=== PATIENT | male | born 1975 | race Two or more races ===

== ENCOUNTER 2024-10-03 11:08 | Emergency (ER) | payer BC, OTHER ==
[~2024-10-03] VITALS: Ht 165.1 cm; Wt 82.7 kg
--- NOTE | 2024-10-03 11:56 | ED.PDOC ---
General HPI Comments PMHx:Denies Any SHx:Gallstone Sx HPI: Poor Historian. 49-year-old male complains of chronic left testicular pain but got worse lately. He went to see a doctor prescribed him Cipro he is on day three of Cipro. Patient states that the pain is getting somewhat worse. He points his left testicle where his pain is. Denies any fall or trauma. Denies any history of sexually transmitted disease however he states having some urinary symptoms with some mild hematuria and penile discharge. REVIEW OF SYSTEMS: CONSTITUTIONAL: Denies acute: fever, diaphoresis, chills, generalized weakness. HEAD: Denies acute: headache, photophobia Eyes: Denies acute: Double vision, vision loss, eye pain, eye discharge. EARS: Denies acute: tinnitus, hearing loss, ear discharge, ear pain, THROAT: Denies acute: sore throat, swelling, difficulty swallowing , pain with swallowing, change in voice. NECK: Denies acute: neck pain, neck swelling, stiff neck. HEART: Denies acute : chest pain, palpitations, LUNGS: Denies acute: SOB, wheezing, cough, hemoptysis ABDOMEN: Denies acute: abdominal pain, Nausea, Vomiting, diarrhea, melena , hematemesis, hematochezia SKIN: Denies acute: rash, redness, lesions, itchiness. EXTREMITIES: Denies acute: calf pain, numbness, tingling, weakness, denies pain in extremity. Denies acute: Low back pain. Neuro: Denies acute: focal neurological deficit, motor or sensory focal neurological deficit, tremors, seizure like activity, confusion, dizziness, change in mental status, loss of bowel or bladder function, cauda equina like symptoms. : Denies acute: flank pain, increase in urinary frequency. PSYCH: Denies acute: hallucination, suicidal ideation, homicidal ideation. PHYSICAL EXAM: General: ----mild----acute distress, awake and alert. Head: normocephalic, atraumatic. Neck: supple, trachea is midline, no swelling. Throat: Normal phonation. Eyes:, no erythema, no purulent discharge, no proptosis, no icterus. Heart: regular rate, regular rhythm, no significant murmur appreciated. Lungs: no apparent respiratory distress, Able to speak in full sentences. No wheezing, no rhonchi, no crackles. No stridors Clear to auscultation bilaterally. Abdomen: non tender to palpation, non distended, soft, no guarding, no rebound, + bowel sounds. Neuro: Awake, Alert, oriented to name, self, situation, follows commands GCS=15. Speech is normal. : Normal-appearing external male genitalia uncircumcised. Evaluation of the testicle does not reveal any erythema or swelling or palpable masses or suspicion for hernia. No crepitus. The left testicle is tender to palpation. Skin: no petechia, no purpura, no cyanosis, non-pale, not jaundice. Lower extremities: --trace bilateral - Pitting edema no deformity, no focal swelling, no calf TTP. Makes eye contact. moves all four extremities. Face: no apparent facial droop. Ambulating in the ED independently. No nuchal rigidity, Kernig's sign, Brudzinski's sign, no meningeal signs. ED COURSE: Chief Complaint: Urinary Time Seen by MD: 11:50 Reviewed notes: Nurses Notes, Allergies Allergies: Coded Allergies: NO KNOWN ALLERGIES (Unverified , 10/03/24) Home Meds Active Scripts Doxycycline Hyclate (DOXYCYCLINE HYCLATE) 100 Mg Tab, 1 TAB PO BID for 7 Days, #14 TAB Prov:DAHLIA RODRIGUEZ DO 10/03/24 Information Source: Patient Mode of Arrival: Ambulatory Past Medical History PAST MEDICAL HISTORY: Denies Surgical History (Other): Gallstone Sx Family History Family History: Reviewed,noncontributory to illness, Unknown Social History Smoker: Non-Smoker Alcohol: Denies ETOH Use Drugs: Denies Drug Use Lives In: Home Was a procedure done? Was a procedure done?: No Differential Diagnosis Kidney stone (Female): N/A Kidney stone (Male): N/A Penile/Scrotal: Epidiymitis, Foreign Body, Prostatitis, STD, UTI, Fractured Penis, Phimosis, Hydrocele, Testicular Torsion, Urolithiasis, Urinary Retention Urinary Problem (Male): Plelonephritis, Urethritis X-Ray, Labs, Meds, VS Vital Signs Date Time Temp Pulse Resp B/P (MAP) Pulse Ox O2 Delivery O2 Flow Rate FiO2 10/03/24 17:56 98.3 69 17 130/73 (92) 97 98.3 10/03/24 17:56 69 17 97 Room Air 10/03/24 11:43 97.9 82 19 127/84 (98) 98 97.9 Lab Test 10/03/24 12:42 10/03/24 12:16 Range/Units White Blood Count 5.4 4.4-10.8 10^3/uL Red Blood Count 4.59 4.5-5.90 10^6/uL Hemoglobin 13.0 L 13.5-17.5 g/dL Hematocrit 36.9 L 41.0-53.0 % Mean Corpuscular Volume 80.3 80.0-100.0 fL Mean Corpuscular Hemoglobin 28.3 28.0-32.0 pg Mean Corpuscular Hemoglobin Concent 35.3 32.0-36.0 g/dL Red Cell Distribution Width 13.3 11.8-14.3 % Platelet Count 256 140-450 10^3/uL Mean Platelet Volume 7.0 6.9-10.8 fL Neutrophils (%) (Auto) 33.7 L 37.0-80.0 % Lymphocytes (%) (Auto) 54.1 H 10.0-50.0 % Monocytes (%) (Auto) 9.8 0.0-12.0 % Eosinophils (%) (Auto) 1.9 0.0-7.0 % Basophils (%) (Auto) 0.5 0.0-2.0 % Neutrophils # (Auto) 1.8 1.6-8.6 10 ^3/uL Lymphocytes # (Auto) 2.9 0.4-5.4 10 ^3/uL Monocytes # (Auto) 0.5 0-1.3 10 ^3/uL Eosinophils # (Auto) 0.1 0-0.8 10 ^3/uL Basophils # (Auto) 0 0-0.2 10 ^3/uL Nucleated Red Blood Cells 0.1 % Sodium Level 139 136-145 mmol/L Potassium Level 4.3 3.5-5.1 mmol/L Chloride Level 105 98-107 mmol/L Carbon Dioxide Level 29 20-31 mmol/L Anion Gap 5 5-15 Blood Urea Nitrogen 13 9-23 mg/dL Creatinine 0.66 L 0.700-1.30 mg/dL Glomerular Filtration Rate Calc 114 >90 mL/min BUN/Creatinine Ratio 19.7 10.0-20.0 Serum Glucose 104 74-106 mg/dL Lactic Acid Level 0.6 0.4-2.0 mmol/L Calcium Level 9.8 8.7-10.4 mg/dL Total Bilirubin 0.4 0.2-1.0 mg/dL Aspartate Amino Transferase (AST) 81 H 13-40 U/L Alanine Aminotransferase (ALT) 130 H 7-40 U/L Alkaline Phosphatase 133 H 46-116 U/L Total Protein 6.8 5.7-8.2 g/dL Albumin 4.1 3.2-4.8 g/dL Urine Color Yellow Yellow Urine Clarity Turbid H Clear Urine pH 5.5 5.0-9.0 Urine Specific [place] 1.021 1.001-1.035 Urine Protein 1+ H Negative Urine Ketones Negative Negative Urine Blood 2+ H Negative /uL Urine Nitrite Negative Negative Urine Bilirubin Negative Negative Urine Urobilinogen Normal Negative mg/dL Urine Leukocyte Esterase 1+ Negative /uL Urine RBC 85 0 - 3 /hpf Urine Microscopic WBC 45 H 0-3 /HPF Urine Squamous Epithelial Cells Few <5 /hpf Urine Bacteria Few H None Seen /hpf Urine Mucus Few None Seen Urine Glucose Normal Normal mg/dL Chlamydia trachomatis (AMANDA) Pending Neisseria gonorrhoeae (AMANDA) Pending Current Medications Medications (Trade) Dose Ordered Sig/Emile Route Start Time Stop Time Status Last Admin Ceftriaxone Sodium 50 ml @ 100 mls/hr ONCE ONCE IV 10/03/24 14:30 10/03/24 14:59 DC 10/03/24 17:48 Azithromycin (Zithromax Tablet) 1,000 mg ONCE ONCE PO 10/03/24 15:45 10/03/24 15:55 DC 10/03/24 17:50 PROCEDURE(s): TESUS - TESTICULAR ULTRASOUND REASON: pain ORDER NUMBER(s): [id number], ACCESSION NUMBER(s): [id number] CLINICAL INFORMATION: 49 years old, Male; pain. TECHNIQUE: Grayscale sonographic imaging of the testicles and scrotal contents was performed , assisted by color doppler technique. Duplex doppler ultrasound of both testicles was performed. COMPARISON: None FINDINGS: The right testicle measures 2.9 x 1.3 x 2.7 cm, within normal limits. Unremarkable echogenicity of the right testicle. Small calcification in the right testicle. Arterial and venous blood flow demonstrated. Unremarkable epididymis. No hydrocele or varicocele. The left testicle measures 3.8 x 1.4 x 2.4 cm, within normal limits. Unremarkable echogenicity of the left testicle. Arterial and venous blood flow demonstrated. Unremarkable epididymis. Small left hydrocele. No varicocele. IMPRESSION: 1. No sonographic evidence of testicular torsion. 2. Heterogeneous left epididymis, with vascular flow within the range of normal. No definite increased vascular flow to suggest epididymitis. Correlate with clinical findings. Small left hydrocele. 3. Small right testicular calcification. EDURE(s): ABPL - CT AB PEL WO CON-NO ORAL OR IV REASON: testicular pain, hematuria, uti symptoms, ORDER NUMBER(s): [id number], ACCESSION NUMBER(s): [id number] CT ABDOMEN AND PELVIS WITHOUT CONTRAST CLINICAL HISTORY: testicular pain, hematuria, uti symptoms, TECHNIQUE: Multiple contiguous axial images of the abdomen and pelvis without intravenous contrast. The images were reformatted degenerate coronal and sagittal reconstructions. All CT scans at this medical facility are performed using dose modulation techniques as appropriate to a performed exam including the following:Automated exposure control was utilized; adjustment of the MA and/or KV according to patient size; and use of iterative reconstruction technique. Radiation Dose Information: CT Dose: CTDI volume is 10 mGy. Dose-length product is 626 mGy*cm Comparison: None FINDINGS: Evaluation of the abdomen and pelvis is limited without intravenous contrast. There is no evidence of nephrolithiasis or hydronephrosis. There is no evidence of a ureteral calculus or hydroureter. Gallbladder is surgically absent. The liver, pancreas, adrenal glands, and spleen appear within normal limits. There is no gross evidence of abdominal lymphadenopathy. There is no free fluid or free air. The stomach grossly appears unremarkable. The small and large bowel loops demonstrate normal caliber and distribution. A normal appearing appendix is seen in the right lower quadrant abdomen. The abdominal aorta and IVC appear within normal limits. The bladder is decompressed limiting evaluation. The bladder nails appear thickened. Pelvic organ appears within normal limits. There is no gross evidence of a pelvic mass. There is no free fluid collection. Lung bases are clear. There is no acute osseous abnormality. IMPRESSION: 1. Limited evaluation of a decompressed bladder. The bladder nails appear thickened. Clinical correlation for cystitis is recommended. HS:Y Time of 1ST Reevaluation: 12:20 Reevaluation 1ST: Unchanged Patient Education/Counseling: Diagnosis, Treatment Family Education/Counseling: No Family Present Comments Patient is already on Cipro. I will give him Rocephin here in the ED and send him home with doxycycline to treat possible STD. STD results are still pending. Patient presented with the above HPI.--testicular pain/urinary symptoms----workup was initiated. patient was found with the above mentioned diagnosis. the following medications were ordered: please refer to order lists of meds and tests obtained by myself Dr. Rodriguez. Patient ED course and VS have been stabilized. Patient has been reassessed in the ED and remained in a stable condition. Pertinent incidental findings were discussed with the patient and/or family. Patient/family voices understanding and is agreeable with plan. Patient has been observed in the ED adequate length of time to insure improvement/stability. Escalation of care considered: Consideration of escalation to observation or admission Patient was DISCHARGED home in a stable condition. All the reports of any imaging studies that were ordered by myself were reviewed by myself. Departure 1 Departure Time of Disposition: 12:52 Impression: Primary Impression: Left testicular pain Additional Impressions: UTI (urinary tract infection) Qualified Codes: N39.0 - Urinary tract infection, site not specified; R31.9 - Hematuria, unspecified Penile discharge Disposition: 01 HOME / SELF CARE / HOMELESS Condition: Stable Additional Instructions: Additional instructions: You MUST follow-up with your primary care/family doctor in 1 to 2 days. If you are unable to see your primary care/family doctor, please return to our emergency room for re-assessment and re-evaluation in 1 to 2 days. Return to the emergency room here in our facility or to the nearest ER [facility] if your symptoms change or worsen. CONSULTATIONS: you MUST Follow-up for consultation as soon as possible with: -urology in 1-2 days. Please call for appointment You MUST call the consultants office yourself to make an appointment. You may need to arrange that through your insurance and/or your primary/family doctor. If you are unable to see the net developer consultant in 1 to 2 days, you must return to our emergency room (or any other ER of your choice) for re-assessment and re- evaluation. Adequate fluid hydration. Pelvic rest. Below is a copy of your radiological report for follow up: PROCEDURE(s): TESUS - TESTICULAR ULTRASOUND REASON: pain ORDER NUMBER(s): [id number], ACCESSION NUMBER(s): [id number] CLINICAL INFORMATION: 49 years old, Male; pain. TECHNIQUE: Grayscale sonographic imaging of the testicles and scrotal contents was performed , assisted by color doppler technique. Duplex doppler ultrasound of both testicles was performed. COMPARISON: None FINDINGS: The right testicle measures 2.9 x 1.3 x 2.7 cm, within normal limits. Unremarkable echogenicity of the right testicle. Small calcification in the r ight testicle. Arterial and venous blood flow demonstrated. Unremarkable epididymis. No hydrocele or varicocele. The left testicle measures 3.8 x 1.4 x 2.4 cm, within normal limits. Unremarkable echogenicity of the left testicle. Arterial and venous blood flow demonstrated. Unremarkable epididymis. Small left hydrocele. No varicocele. IMPRESSION: 1. No sonographic evidence of testicular torsion. 2. Heterogeneous left epididymis, with vascular flow within the range of normal. No definite increased vascular flow to suggest epididymitis. Correlate with clinical findings. Small left hydrocele. 3. Small right testicular calcification. EDURE(s): ABPL - CT AB PEL WO CON-NO ORAL OR IV REASON: testicular pain, hematuria, uti symptoms, ORDER NUMBER(s): [id number], ACCESSION NUMBER(s): [id number] CT ABDOMEN AND PELVIS WITHOUT CONTRAST CLINICAL HISTORY: testicular pain, hematuria, uti symptoms, TECHNIQUE: Multiple contiguous axial images of the abdomen and pelvis without intravenous contrast. The images were reformatted degenerate coronal and sag ittal reconstructions. All CT scans at this medical facility are performed using dose modulation techniques as appropriate to a performed exam including the following:Automated exposure control was utilized; adjustment of the MA and/or KV according to pat ient size; and use of iterative reconstruction technique. Radiation Dose Information: CT Dose: CTDI volume is 10 mGy. Dose-length product is 626 mGy*cm Comparison: None FINDINGS: Evaluation of the abdomen and pelvis is limited without intravenous contrast. There is no evidence of nephrolithiasis or hydronephrosis. There is no evidence of a ureteral calculus or hydroureter. Gallbladder is surgically absent. The liver, pancreas, adrenal glands, and spleen appear within normal limits. There is no gross evidence of abdominal lymphadenopathy. There is no free fluid or free air. The stomach grossly appears unremarkable. The small and large bowel loops demonstrate normal caliber and distribution. A normal appearing appendix is seen in the right lower quadrant abdomen. The abdominal aorta and IVC appear within normal limits. The bladder is decompressed limiting evaluation. The bladder nails appear thickened. Pelvic organ appears within normal limits. There is no gross evidence of a pelvic mass. There is no free fluid collection. Lung bases are clear. There is no acute osseous abnormality. IMPRESSION: 1. Limited evaluation of a decompressed bladder. The bladder nails appear thickened. Clinical correlation for cystitis is recommended. HS:Y e-Prescriptions Doxycycline Hyclate (DOXYCYCLINE HYCLATE) 100 Mg Tab 1 TAB PO BID for 7 Days, #14 TAB Prov: DAHLIA RODRIGUEZ DO 10/03/24 Discharged With: Self Critical Care Note Critical Care Time?: No I personally scribed for DAHLIA RODRIGUEZ DO ([email or web address]) on 10/03/24 at 11:56. Electronically submitted by Bharath Thompson ([email or web address]). I personally scribed for DAHLIA RODRIGUEZ DO ([email or web address]) on 10/03/24 at 14:55. Electronically submitted by Bharath Thompson ([email or web address]). I personally scribed for DAHLIA RODRIGUEZ DO ([email or web address]) on 10/03/24 at 15:40. Electronically submitted by Bharath Thompson ([email or web address]). DAHLIA RODRIGUEZ DO Oct 03, 2024 11:56
[2024-10-03 12:38] LABS: Urine Bacteria FEW /hpf (None Seen); Urine Blood 2+ /uL (Negative); Urine Clarity Turbid (Clear); Urine Color Yellow (Yellow); Urine Mucus FEW (None Seen); Urine Protein, UAD 1+ (Negative); Urine Specific Gravity 1.021 (1.001-1.035); Urine Squamous Epithelial Cell FEW /hpf (<5); Urine Urobilinogen Normal (Negative); Urine WBC 45 /HPF (0-3); Urine pH 5.5 (5.0-9.0)
--- NOTE | 2024-10-03 12:55 | DVH ---
CT ABDOMEN AND PELVIS WITHOUT CONTRAST CLINICAL HISTORY: testicular pain, hematuria, uti symptoms, TECHNIQUE: Multiple contiguous axial images of the abdomen and pelvis without intravenous contrast. T he images were reformatted degenerate coronal and sagittal reconstructions. All CT scans at this medical facility are performed using dose modulation techniques as appropriate t o a performed exam including the following:Automated exposure control was utilized; adjustment of the MA and/or KV according to patient size; and use of iterative reconstruction technique. Radiation Dose Information: CT Dose: CTDI volume is 10 mGy. Dose-length product is 626 mGy*cm Comparison: None FINDINGS: Evaluation of the abdomen and pelvis is limited without intravenous contrast. There is no evidence of nephrolithiasis or hydronephrosis. There is no evidence of a ureteral calculu s or hydroureter. Gallbladder is surgically absent. The liver, pancreas, adrenal glands, and spleen appear within n ormal limits. There is no gross evidence of abdominal lymphadenopathy. There is no free fluid or free air. The stomach grossly appears unremarkable. The small and large bowel loops demonstrate normal caliber and distribution. A normal appearing appendix is seen in the right lower quadrant abdomen. The abdominal aorta and IVC appear within normal limits. The bladder is decompressed limiting evaluation. The bladder nails appear thickened. Pelvic organ amy ears within normal limits. There is no gross evidence of a pelvic mass. There is no free fluid colle ction. Lung bases are clear. There is no acute osseous abnormality. IMPRESSION: 1. Limited evaluation of a decompressed bladder. The bladder nails appear thickened. Clinical correl ation for cystitis is recommended. HS:Y
[2024-10-03 13:04] LABS: Basophils # (auto) 0 10 ^3/uL (0-0.2); Basophils % (auto) 0.5 % (0.0-2.0); Eosinophils # (auto) 0.1 10 ^3/uL (0-0.8); Eosinophils % (auto) 1.9 % (0.0-7.0); Hematocrit 36.9 % (41.0-53.0); Lymphocytes # (auto) 2.9 10 ^3/uL (0.4-5.4); Lymphocytes % (auto) 54.1 % (10.0-50.0); Mean Corpuscular Hemoglobin 28.3 pg (28.0-32.0); Mean Corpuscular Hgb Conc. 35.3 g/dL (32.0-36.0); Mean Corpuscular Volume 80.3 fL (80.0-100.0); Monocytes # (auto) 0.5 10 ^3/uL (0-1.3); Monocytes % (auto) 9.8 % (0.0-12.0); Neutrophils # (auto) 1.8 10 ^3/uL (1.6-8.6); Neutrophils % (auto) 33.7 % (37.0-80.0); Nucleated Red Blood Cells % 0.1 %; Platelet Count (auto) 256 10^3/uL (140-450); Red Blood Cells 4.59 10^6/uL (4.5-5.90); Red Cell Distribution Width 13.3 % (11.8-14.3); White Blood Cell 5.4 10^3/uL (4.4-10.8)
[2024-10-03 13:19] LABS: Albumin 4.1 g/dL (3.2-4.8); Anion Gap 5 (5-15); BUN/Creatinine Ratio 19.7 (10.0-20.0); Bilirubin, Total 0.4 mg/dL (0.2-1.0); Blood Urea Nitrogen 13 mg/dL (9-23); Calcium 9.8 mg/dL (8.7-10.4); Carbon Dioxide 29 mmol/L (20-31); Chloride 105 mmol/L (98-107); Glucose 104 mg/dL (74-106); Potassium 4.3 mmol/L (3.5-5.1); Sodium 139 mmol/L (136-145); Total Protein 6.8 g/dL (5.7-8.2)
[2024-10-03 13:20] LABS: Alanine Aminotransferase 130 U/L (7-40); Alkaline Phosphatase 133 U/L (46-116); Aspartate Aminotransferase 81 U/L (13-40)
--- NOTE | 2024-10-03 13:38 | DVH ---
CLINICAL INFORMATION: 49 years old, Male; pain. TECHNIQUE: Grayscale sonographic imaging of the testicles and scrotal contents was performed , jason gene by color doppler technique. Duplex doppler ultrasound of both testicles was performed. COMPARISON: None FINDINGS: The right testicle measures 2.9 x 1.3 x 2.7 cm, within normal limits. Unremarkable echogenicity of th e right testicle. Small calcification in the right testicle. Arterial and venous blood flow demonstra gene. Unremarkable epididymis. No hydrocele or varicocele. The left testicle measures 3.8 x 1.4 x 2.4 cm, within normal limits. Unremarkable echogenicity of the left testicle. Arterial and venous blood flow demonstrated. Unremarkable epididymis. Small left hy drocele. No varicocele. IMPRESSION: 1. No sonographic evidence of testicular torsion. 2. Heterogeneous left epididymis, with vascular flow within the range of normal. No definite increase d vascular flow to suggest epididymitis. Correlate with clinical findings. Small left hydrocele. 3. Small right testicular calcification.
[2024-10-03] MEDS ORDERED: DOXY-286 PO (15:45)
[2024-10-03] MEDS: cefTRIAXone 1GM/50ML D5W 50 ML IV ONE (17:48)
[2024-10-03] MEDS: AZITHROMYCIN 250 MG TAB PO ONE (17:50)
[2024-10-03 17:56] VITALS: BP 130/73; PULSE 69; RESP 17; TEMP 98.3; O2SAT 97
[2024-10-05 02:07] LABS: Chlamydia Trachomatis, NAA Negative (Negative); Neisseria gonorrhoeae, NAA Negative (Negative)
== END 2024-10-03 18:08 | disposition home or self-care (01) ==
LOC: ER 11:14
DX: N50.812 Left testicular pain (principal); N39.0 Urinary tract infection, site not specified; R36.9 Urethral discharge, unspecified; Z79.899 Other long term (current) drug therapy
CPT/HCPCS: 36415; 74176; 76870; 80053; 81001; 83605; 85025; 87491; 87591; 96365; 99285; J0696